=== PATIENT | female | born 1960 | race African-American/Black ===

== ENCOUNTER 2019-08-28 14:21 | Emergency (ER) | payer OTHER ==
[~2019-08-28] VITALS: Ht 160 cm; Wt 81.7 kg
[2019-08-28] MEDS ORDERED: TOPAMAX100 MG PO (14:49)
[2019-08-28] MEDS ORDERED: ADVAIR 250-501 EACH INH (14:49)
[2019-08-28] MEDS ORDERED: SINGULAIR 10 MG10 MG PO (14:49)
[2019-08-28 14:50] LABS: CALCIUM 9.4 mg/dL (8.5-10.1); CREATININE 1.6 mg/dL (0.6-1.0); MAGNESIUM 2.1 mg/dL (1.8-2.4); POTASSIUM 3.7 mmol/L (3.5-5.1)
[2019-08-28 16:30] VITALS: BP 111/55
== END 2019-08-28 16:32 | disposition home or self-care (01) ==
LOC: ER 14:21
PROVIDERS: Emergency Medicine
DX: R25.2 Cramp and spasm (principal); M79.671 Pain in right foot; M79.672 Pain in left foot; J45.909 Unspecified asthma, uncomplicated; F17.210 Nicotine dependence, cigarettes, uncomplicated; Z79.899 Other long term (current) drug therapy; Z88.5 Allergy status to narcotic agent; Z91.040 Latex allergy status